=== PATIENT | female | born 1970 | race Caucasian/White ===

== ENCOUNTER → 2017-12-08 12:42 | Outpatient (CLI) | payer BC ==
--- NOTE | ~2017-12-08 | EC ---
PATIENT:ROBERTO CRAWFORD DATE OF SERVICE: 12/08/17 SEX: F MEDICAL RECORD: [id number] DATE OF : 70 LOCATION:[facility] AGE OF PATIENT: 47 ADMISSION DATE: 12/08/17 REFERRING PHYSICIAN: INTERPRETING PHYSICIAN: YFN BENTLEY MD ECHOCARDIOGRAM REPORT ECHO CHARGES 4 ECHO COMPLETE CLINICAL DIAGNOSIS: CP/PALPITATIONS/SOB ECHOCARDIOGRAPHIC MEASUREMENTS (adult normal given) AC root (d.<3.7cm) 2.8 cm LV Septum d (<1.2 cm> 1.0 cm Valve Excursion 1.7 cm LV Septum (systole) 1.8 cm Left Atria (s.<4.0cm> 3.2 cm LVPW d(<1.2cm) 1.1 cm RV (d.<2.3cm) 2.2 cm LVPW (sytole) 1.8 cm LV diastole(<5.6CM) 5.2 cm MV E-F(>70mm/sec) cm LV systole 2.7 cm LVOT Diameter 1.7 cm MV exc.(>10mm) cm Est.ejection fraction (50-75%) % Pericardial Effusion N DOPPLER: LVIT cm/sec A 94.0 cm/sec E 115 cm/sec LA cm/sec RVSP 40.0 mmHg LVOT 144 cm/sec AOP1/2T m/s Asc. Ao 171 cm/sec RVOT 74.0 cm/sec RA cm/sec PA 114 cm/sec AV Gradient Peak 12.0 mmHg AV Mean 4.9 mmHg AV Area 2.4 cm MV Gradient Peak 7.4 mmHg MV Mean 2.5 mmHg MV Area cm COMMENTS: [employer] Operator: Lynsey HANLEYOE Roller Stitcher: Joyce Bentley TAPE# PACS DATE OF SERVICE: 12/08/2017 PROCEDURE: Transthoracic echocardiogram. FINDINGS: 1. Left ventricle shows normal size, normal function. No regional wall motion abnormalities, EF 65%-70%. 2. Aortic valve not well visualized, but grossly normal. 3. The mitral valve has vnil-gr-mhdekuqx mitral regurgitation, but grossly normal structure. ECHOCARDIOGRAM REPORT [id number] ROBERTO CRAWFORD 4. Tricuspid valve has trace tricuspid regurgitation. RVSP mildly elevated at 35-40 mmHg. 5. The right ventricle is normal size, normal function. 6. The right atrium is normal size, normal function. Inflow characteristics are normal. Pulmonic valve is normal. Interatrial septum appears to be normal. CONCLUSIONS: This is overall normal echocardiogram, has abbj-bw-rnuprswn mitral regurgitation. TRANSINT:[id number] Voice Confirmation ID: [id number] DOCUMENT ID: [id number] YFN BENTLEY MD at 1214 CC: [id number] DICTATION DATE: 12/09/17 0807 DISTILLERY SUPERVISOR: 12/09/17 0832 DEP CLI 12/08/17 [facility] [address] [place] [address]
== END | disposition home or self-care (01) ==
LOC: D.ECHO 12:42
DX: R07.9 Chest pain, unspecified (principal); R00.2 Palpitations; R06.02 Shortness of breath

== ENCOUNTER → 2017-12-24 16:14 | Outpatient (CLI) | payer BC ==
[2017-12-24 17:20] LABS: CHOL - HDL RATIO 2.5 ratio (2.3-4.1); LDL-HDL RATIO 1.3 ratio (1.5-3.5)
== END | disposition home or self-care (01) ==
LOC: D.LABREF 16:14
PROVIDERS: Internal Medicine Cardiovascular Disease
DX: E78.5 Hyperlipidemia, unspecified (principal)

== ENCOUNTER → 2018-01-05 17:36 | Outpatient (CLI) | payer BC ==
[2018-01-05 22:25] LABS: ERYTHROCYTE SEDIMENTATION RATE 2 mm/hr (0-20)
[2018-01-07 10:20] LABS: ANA REFLEX - DIRECT Negative (Negative)
== END | disposition home or self-care (01) ==
LOC: D.LABREF 17:36
PROVIDERS: Internal Medicine Cardiovascular Disease
DX: M19.90 Unspecified osteoarthritis, unspecified site (principal)

== ENCOUNTER → 2018-09-03 16:27 | Outpatient (CLI) | payer OTHER, BC | END | disposition home or self-care (01) | LOC: D.MRI 16:27 | DX: M54.2 Cervicalgia (principal) ==

== ENCOUNTER 2019-01-21 05:20 | Day surgery (SDC) | payer OTHER, BC ==
[2019-01-20 10:10] LABS: HEMOGLOBIN 15.1 g/dL (12-16); MCH 31.9 pg (26.0-34.0); MCV 88.6 fL (80.0-100.0); MEAN PLATELET VOLUME 8.7 fL (7.4-10.4); RBC 4.74 10x6/uL (4.00-5.40); RDW 11.9 % (11.5-14.5); WBC 6.7 10x3/uL (4.8-10.8)
[~2019-01-21] VITALS: Ht 154.9 cm; Wt 74.9 kg
[2019-01-21] VITALS (13 sets, daily range): BP systolic 100–161; BP diastolic 65–87; Ht 154.9 cm; Wt 74.9 kg
[~2019-01-21 05:20] MED LIST: BUPROPION XL300 MG PO; ESTRACE1 MG PO; MELATONIN 3 MG1 TAB PO; SYNTHROID100 MCG PO; TYLENOL W/CODEI1 TAB; VITAMIN MULTI; ZANAFLEX2 M1
[2019-01-21] MEDS ORDERED: MERIBIN5 MG PO (05:48)
--- NOTE | 2019-01-21 11:40 | NUR ---
1110 ACD WITH LDR DISC DONE, PATIENT THEN REPOSITIONED FOR POSTERIOR FORAMINOTOMY, PLACED PRONE WITH ROGER HEADREST, PLACED BY DR NAVARRO, ALL AREAS PADDED AND SECURED WITH NO IMPINGEMENTS. DR NAVARROPRESENT AND ASSISTING WITH POSITION, EZE.
--- NOTE | 2019-01-21 14:12 | NUR ---
PT ARRIVED ON UNIT VIA BED, ALERT AND ORIENTED, DRSG TO NECK INCISIONS CDI, ALL PPP, VSS, WILL CON'T TO MONITOR
--- NOTE | 2019-01-21 16:00 | NUR ---
PT RESTING AT THIS TIME, WILL CON'T TO MONITOR
--- NOTE | 2019-01-21 18:30 | NUR ---
PT C/O PAIN, ORDERED PAIN MED GIVEN,
--- NOTE | 2019-01-21 19:15 | NUR ---
REC'D TO CARE, SEAMLESS TUBE ROLLER PER FLOWSHEET, PT AWAKE AND ORIENTED. NECK INCISIONS NOTED, PT REPORTS "PAIN IS BETTER". REQUESTS FOWLER OUT. VSS. NEURO WNL. C/L IN REACH.
--- NOTE | 2019-01-21 19:54 | NUR ---
FOWLER CATH REMOVED INTACT, YARELIS-CARE PROVIDED.
--- NOTE | 2019-01-21 20:56 | NUR ---
AT BS. PT C/O BREAK THROUGH PAIN- ADMIN PRN DILAUDID. THEN GIVEN BROTH PER REQUEST. ALARMS ON AND C/L IN REACH.
--- NOTE | 2019-01-21 21:26 | NUR ---
PT REPORTS ADEQUATE PAIN RELIEF. ASSISTED UP TO BSC. REMAINS AT BS.
--- NOTE | 2019-01-21 21:43 | NUR ---
PT UP IN BED, ADMIN PO MEDS PER MD ORDERS. NO DIFFICULTY SWALLOWING. O2 AT 5L HF NC, POX 98%.
--- NOTE | 2019-01-21 23:26 | NUR ---
REASSESSMENT PER FLOWSHEET, NO ACUTE CHANGES. PT UP TO BSC, C COLLAR ON, MINIMAL ASSIST. BACK TO BED. VSS. C/L IN REACH.
[2019-01-22] VITALS (10 sets, daily range): BP systolic 99–123; BP diastolic 57–79
--- NOTE | 2019-01-22 00:52 | NUR ---
PT UP TO BSC, AND BACK TO BED WITH MINIMAL ASSIST. ADMIN PRN NORCO AND ROBAXIN PER PT REQUEST - SEE EMAR. DENIES OTHER NEEDS. C/L IN REACH.
--- NOTE | 2019-01-22 02:03 | NUR ---
PT RESTING QUIETLY, NO SIGN OF DISTRESS. C/L IN REACH.
--- NOTE | 2019-01-22 03:13 | NUR ---
REASSESSMENT PER FLOWSHEET, NO ACUTE CHANGES. PT RESTING QUIETLY, DENIES NEEDS. C/L IN REACH.
--- NOTE | 2019-01-22 03:57 | NUR ---
UP TO BSC, C/O BREAK THROUGH PAIN AFTER MOVING AROUND. ADMIN PRN DILAUDID SIVP. IN TO SEE PT, GIVEN BROTH AND CRACKERS PER REQUEST.
--- NOTE | 2019-01-22 05:00 | NUR ---
RESTING WITH EYES CLOSED, VSS. C/L IN REACH.
--- NOTE | 2019-01-22 07:05 | NUR ---
REPORT RECIEVED, SHIFT ASSESSMENT COMPLETE, PT IS ALERT AND ORIENTED, C/O OF PAIN, ORDERED PAIN MED GIVEN, NO OTHER NEEDS NOTED, WILL CON'T TO MONITOR
--- NOTE | 2019-01-22 09:57 | NUR ---
DR. NAVARRO AT BEDSIDE, UPDATE GIVEN, NEW ORDERS RECIEVED
--- NOTE | 2019-01-22 10:15 | NUR ---
PT C/O OF NECK PAIN, ORDERED PAIN MED GIVEN
--- NOTE | 2019-01-22 10:44 | NUR ---
AA0X4. ON ROOM AIR. AMBULATORY. C/O PAIN LEVEL 6/10. C/O ITCHING. DRESSING TO RIGHT NECK AND POSTERIOR NECK, SCANT DRAININAGE ON POSTERIOR DRESSING, IV TO LEFT FOREARM, PATENT, INFSUING D51/2 AT 100ML/HR. DENIES ANY OTHER NEEDS OR DISCOMFORTS, BED LOWERED AND LOCKED, CALL LIGHT WITHIN REACH. CPOC
--- NOTE | 2019-01-22 11:55 | NUR ---
I have reviewed this patient and I concur with the Shift Assessment completed by the Licensed Practical Nurse today this shift.
--- NOTE | 2019-01-22 17:57 | NUR ---
IV INFILITRATED TO LEFT FOREARM, IV DISCONTINUTED CATHETER TIP INTACT, ICE APPLIED TO SITE TO DECREASE SWELLING, DENIES ANY OTHER NEEDS OR DISCOMFORTS, BED LOWERED AND LOCKED, CALL LIGHT WITHIN REACH. CPOC
[2019-01-23] VITALS: BP 113/62
--- NOTE | 2019-01-23 05:30 | NUR ---
I have reviewed this patient and I concur with the Shift Assessment completed by the Licensed Practical Nurse today this shift.
--- NOTE | 2019-01-23 09:42 | NUR ---
PT DC HOME THIS MORNING, WENT OVER DC INSTRUCTIONS WITH PT AND SPOUSE, ALL QUESTIONS ANSWERED, ADVISED PT TO CALL DR NAVARRO OFFICE FRIDAY MORNING FOR 2 WEEK HOSPITAL F/U. PT REQUESTED PAION MEDICATION BEFORE DC, PT ADMINISTERED PRNPAIN MEDICATION AT 0900 AND TAKEN DOWN TO CAR AT 0915. ADVISED TO CALL DR AGUERO WITH ANY CONCERNS
== END 2019-01-23 09:45 | disposition home or self-care (01) ==
LOC: OBSVTIME → D.ICU 05:20 → D.OPS 05:20 → D.SDCHOLD 05:20 → OBSVTIME 05:20 → D.MS 05:20 → D.SDCHOLD 05:20 → EDSTATUS 09:45 → D.SDCHOLD 09:45 → D.ICU 14:10 → D.MS 01-22 10:41 → D.OPS 01-23 09:45 → D.MS 01-23 09:45
PROVIDERS: Anesthesiology; ATTEND Neurological Surgery
DX: M50.20 Other cervical disc displacement, unspecified cervical region (principal)